=== PATIENT | female | born 1975 | race Caucasian/White ===

== ENCOUNTER 2016-12-13 18:09 | Emergency (ER) | payer MEDICAID ==
[2016-12-13] MEDS ORDERED: NORMAL SALINE 1000 ML 1,000 ML IV ONE (19:02)
[2016-12-13] MEDS ORDERED: ONDANSETRON HCL INJ/PF 4 MG/2 ML SDV IM ONE (19:03)
[2016-12-13] MEDS ORDERED: MORPHINE SULFATE 10 MG/ML INJ IM ONE (19:03)
--- NOTE | 2016-12-13 19:06 | ER Document Report ---
ED Medical Screen (RME) - General Chief Complaint: Abdominal Pain Stated Complaint: ABDOMINAL PAIN Notes: This 41-year-old female patient comes in from complaining of severe abdominal pain, cramps, with nausea and vomiting that started about one hour prior to arrival. She has had abdominal pains for at least 2 years. She had a barium swallow done yesterday at [facility]. She was told in the past she had large gas pockets in her bowels. She is diffusely tender throughout her abdomen at this time. She describes the worst pain being left abdomen and left flank region. I have greeted and performed a rapid initial assessment of this patient. A comprehensive ED assessment and evaluation of the patient, analysis of test results and completion of the medical decision making process will be conducted by additional ED providers. TRAVEL OUTSIDE OF THE [place] IN LAST 30 DAYS: No - Related Data Allergies/Adverse Reactions: hydromorphone [From Dilaudid] Allergy (Severe, Verified 12/13/16 18:30) Anaphylaxis acetaminophen [From Pamprin Max] Allergy (Verified 12/13/16 18:30) aspirin [From Pamprin Max] Allergy (Verified 12/13/16 18:30) caffeine [From Pamprin Max] Allergy (Verified 12/13/16 18:30) gabapentin Allergy (Verified 12/13/16 18:30) meperidine [From Demerol] Allergy (Verified 12/13/16 18:30) pregabalin [From Lyrica] Allergy (Verified 12/13/16 18:30) Past Medical History Renal/ Medical History: Denies: Hx Peritoneal Dialysis GI Medical History: Reports: Hx Gastritis, Hx Colonoscopy, Hx Endoscopy Past Surgical History: Reports: Hx Cholecystectomy, Hx Gastric Bypass Surgery, Hx Orthopedic Surgery - R elbow - Immunizations Hx Diphtheria, Pertussis, Tetanus Vaccination: Yes Physical Exam - Vital signs Vitals: Temp Pulse Resp BP Pulse Ox 98.6 F 114 H 18 119/78 100 12/13/16 18:30 12/13/16 18:30 12/13/16 18:30 12/13/16 18:30 12/13/16 18:30 Course - Vital Signs Vital signs: Temp Pulse Resp BP Pulse Ox 98.6 F 114 H 18 119/78 100 12/13/16 18:30 12/13/16 18:30 12/13/16 18:30 12/13/16 18:30 12/13/16 18:30
[2016-12-13 19:37] LABS: ABSOLUTE BASOPHILS # (AUTO) 0.1 10^3/uL (0.0-0.2); ABSOLUTE EOSINOPHILS # (AUTO) 0.1 10^3/uL (0.0-0.6); ABSOLUTE LYMPHOCYTES (AUTO) 2.6 10^3/uL (0.5-4.7); ABSOLUTE MONOCYTES (AUTO) 0.5 10^3/uL (0.1-1.4); ABSOLUTE NEUT (AUTO) 7.5 10^3/uL (1.7-8.2); BASOPHILS % (AUTO) 0.5 % (0-2); EOSINOPHILS % (AUTO) 0.9 % (0-6); HEMATOCRIT 30.8 % (36.0-47.0); HGB HCT DIFFERENCE -0.8; LYMPHOCYTES % (AUTO) 24.4 % (13-45); MEAN CORPUSCULAR HGB CONC 32.6 g/dL (32.0-36.0); MEAN CORPUSCULAR VOLUME 86 fl (80-97); MONOCYTES % (AUTO) 4.8 % (3-13); RED BLOOD COUNT 3.58 10^6/uL (3.72-5.28); SEGMENTED NEUTROPHILS % (AUTO) 69.4 % (42-78); WHITE BLOOD COUNT 10.8 10^3/uL (4.0-10.5)
[2016-12-13 19:43] LABS: APPEARANCE,URINE TURBID; BILIRUBIN,URINE NEGATIVE (NEGATIVE); GLUCOSE, URINE 50 mg/dL (NEGATIVE); KETONES,URINE TRACE mg/dL (NEGATIVE); LEUKOCYTE ESTERASE,URINE LARGE (NEGATIVE); NITRITE,URINE POSITIVE (NEGATIVE); PROTEIN,URINE 30 mg/dL (NEGATIVE); URINE SPECIFIC GRAVITY 1.029; UROBILINOGEN,URINE NEGATIVE mg/dL (<2.0)
[2016-12-13] MEDS ORDERED: DICYCLOMINE HCL INJ 20 MG/2 ML AMPULE IM ONE (19:45)
--- NOTE | 2016-12-13 19:51 | ER Document Report ---
ED GI/ - General Mode of Arrival: Ambulatory Information source: Patient TRAVEL OUTSIDE OF THE [place] IN LAST 30 DAYS: No - HPI Patient complains to provider of: Abdominal pain Onset: This morning Quality of pain: Sharp <NANCY WAGONER - Last Filed: 12/13/16 20:01> <JAMIE QUIROS - Last Filed: 12/13/16 22:43> - General Chief Complaint: Abdominal Pain Stated Complaint: ABDOMINAL PAIN Notes: Patient is a 41-year-old female that presents to the emergency department today with complaints of abdominal pain with associated nausea and vomiting. Patient had a barium swallow test done yesterday. Patient states she did not develop pain immediately after the swallow. Patient states that she had a normal bowel movement today at 0730. Patient states her pain, nausea, and vomiting began around 1200 today. Patient states she always has abdominal pain that is described as a "pressure" however this pain is "different" and she describes it as more of a "poking" pain. Patient had a gastric bypass in 2007 in [place] with no complications. Patient denies fevers or diarrhea. (NANCY WAGONER) - Related Data Allergies/Adverse Reactions: hydromorphone [From Dilaudid] Allergy (Severe, Verified 12/13/16 18:30) Anaphylaxis acetaminophen [From Pamprin Max] Allergy (Verified 12/13/16 18:30) aspirin [From Pamprin Max] Allergy (Verified 12/13/16 18:30) caffeine [From Pamprin Max] Allergy (Verified 12/13/16 18:30) gabapentin Allergy (Verified 12/13/16 18:30) meperidine [From Demerol] Allergy (Verified 12/13/16 18:30) pregabalin [From Lyrica] Allergy (Verified 12/13/16 18:30) Past Medical History - General Information source: Patient, [facility] Records - Social History Smoking Status: Never Smoker Cigarette use (# per day): No Frequency of alcohol use: None Drug Abuse: None Lives with: Family Family History: Reviewed & Not Pertinent Patient has suicidal ideation: No Patient has homicidal ideation: No GI Medical History: Reports: Hx Gastritis, Hx Colonoscopy, Hx Endoscopy Past Surgical History: Reports: Hx Cholecystectomy, Hx Gastric Bypass Surgery, Hx Orthopedic Surgery - R elbow - Immunizations Hx Diphtheria, Pertussis, Tetanus Vaccination: Yes <CIARAN,NANCY - Last Filed: 12/13/16 20:01> Review of Systems - Review of Systems Constitutional: denies: Fever EENT: No symptoms reported Cardiovascular: No symptoms reported Respiratory: No symptoms reported Gastrointestinal: See HPI, Abdominal pain, Nausea, Vomiting. denies: Diarrhea Genitourinary: No symptoms reported Female Genitourinary: No symptoms reported Musculoskeletal: No symptoms reported Skin: No symptoms reported Hematologic/Lymphatic: No symptoms reported Neurological/Psychological: No symptoms reported -: Yes All other systems reviewed and negative <NANCY WAGONER - Last Filed: 12/13/16 20:01> Physical Exam - Vital signs Interpretation: Tachycardic - General General appearance: Alert, Other - appears uncomfortable In distress: None - Respiratory Respiratory status: No respiratory distress Breath sounds: Normal - Cardiovascular Rhythm: Regular, Tachycardia - Abdominal Inspection: Normal Tenderness: Tender - mild diffuse - Back Back: Tender, CVA tenderness - L - Extremities General upper extremity: Normal inspection, Normal ROM, Normal strength General lower extremity: Normal inspection, Normal ROM, Normal strength, Normal weight bearing - Psychological Associated symptoms: Normal affect, Normal mood - Skin Skin Temperature: Warm Skin Moisture: Dry Skin Color: Normal <JAMIE QUIROS - Last Filed: 12/13/16 22:43> - Vital signs Vitals: Temp Pulse Resp BP Pulse Ox 98.6 F 114 H 18 119/78 100 12/13/16 18:30 12/13/16 18:30 12/13/16 18:30 12/13/16 18:30 12/13/16 18:30 Course - Laboratory Result Diagrams: 12/13/16 19:10 12/13/16 19:10 <NANCY WAGONER - Last Filed: 12/13/16 20:01> - Laboratory Result Diagrams: 12/13/16 19:10 12/13/16 19:10 - Diagnostic Test Radiology reviewed: Image reviewed, Reports reviewed <JAMIE QUIROS - Last Filed: 12/13/16 22:43> - Re-evaluation Re-evalutation: 12/13/16 21:33 Patient is feeling better at this time. Able to take by mouth 12/13/16 22:40 No acute findings on CT except for ovarian cyst. Patient has UTI and some flank pain. Has been given Rocephin in the emergency department. Culture sent. Patient will be discharged home with Keflex and pain medication. Agrees with this plan. (JAMIE QUIROS) - Vital Signs Vital signs: Temp Pulse Resp BP Pulse Ox 98.6 F 114 H 18 119/78 100 12/13/16 18:30 12/13/16 18:30 12/13/16 18:30 12/13/16 18:30 12/13/16 18:30 - Laboratory Laboratory results interpreted by me: 12/13/16 12/13/16 12/13/16 19:10 19:10 19:10 WBC 10.8 H RBC 3.58 L Hgb 10.0 L Hct 30.8 L RDW 17.0 H AST 48 H ALT 68 H Alkaline Phosphatase 148 H Urine Protein 30 H Urine Glucose (UA) 50 H Urine Ketones TRACE H Urine Blood SMALL H Urine Nitrite POSITIVE H Ur Leukocyte Esterase LARGE H Discharge <NANCY WAGONER - Last Filed: 12/13/16 20:01> <JAMIE QUIROS - Last Filed: 12/13/16 22:43> - Discharge Clinical Impression: Pyelonephritis Ovarian cyst Qualifiers: Laterality: left Qualified Code(s): N83.202 - Unspecified ovarian cyst, left side UTI (urinary tract infection) Qualifiers: Urinary tract infection type: site unspecified Hematuria presence: without hematuria Qualified Code(s): N39.0 - Urinary tract infection, site not specified Condition: Stable Disposition: HOME, SELF-CARE Instructions: Urinary Tract Infection ([facility]), Cephalexin ([facility]), Pyelonephritis ( [facility]) Prescriptions: Cephalexin Monohydrate [Keflex 500 mg Capsule] 500 mg PO QID #40 capsule Oxycodone HCl/Acetaminophen [Percocet 5-325 mg Tablet] 1 - 2 tab PO Q4H PRN #15 tablet PRN Reason: Scribe Attestation: 12/13/16 22:42 I personally performed the services described in the documentation, reviewed and edited the documentation which was dictated to the scribe in my presence, and it accurately records my words and actions. (JAMIE QUIROS) Scribe Documentation - Scribe Written by Scribe:: Rayray Schmitz 12/13/2016 2006 acting as scribe for :: Maria Elena <NANCY WAGONER - Last Filed: 12/13/16 20:01>
[2016-12-13 19:59] LABS: ALANINE AMINOTRANSFERASE 68 U/L (9-52); ALBUMIN 4.3 g/dL (3.5-5.0); ALKALINE PHOSPHATASE 148 U/L (38-126); ANION GAP 14 (5-19); ASPARTATE AMINO TRANSFERASE 48 U/L (14-36); BILIRUBIN,DIRECT 0.3 mg/dL (0.0-0.4); BILIRUBIN,TOTAL 0.5 mg/dL (0.2-1.3); BLOOD UREA NITROGEN 17 mg/dL (7-20); CARBON DIOXIDE 24 mmol/L (22-30); CHLORIDE 105 mmol/L (98-107); CREATININE RESULT 0.74 mg/dL (0.52-1.25); GLUCOSE 87 mg/dL (75-110); LIPASE 247.1 U/L (23-300); POTASSIUM 4.4 mmol/L (3.6-5.0); SODIUM 143.3 mmol/L (137-145); TOTAL PROTEIN 7.3 g/dL (6.3-8.2)
[2016-12-13] MEDS ORDERED: CEFTRIAXONE 1 GM/D5W RTU 50 ML IV ONE (20:45)
[2016-12-13] MEDS ORDERED: MORPHINE SULFATE 10 MG/ML INJ IV ONE (22:36)
[2016-12-13] MEDS ORDERED: HYDROCODONE/ACETAMINOPHEN 5-325 MG 6 TAB/DSPK PO PRN (22:41)
[2016-12-13 23:33] VITALS: BP 129/86
== END 2016-12-13 23:15 | disposition home or self-care (01) ==
LOC: ER 18:09
DX: N12 Tubulo-interstitial nephritis, not specified as acute or chronic (principal); N83.202 Unspecified ovarian cyst, left side; N39.0 Urinary tract infection, site not specified
CPT/HCPCS: 99284; 96372; 96375; 96365; 36415; 87086; 83690; 85025; 87088; 80053; 81001; 87186; 74022; 76705; 74177; J0500; J2270; J2405; J7030; J0696

== ENCOUNTER 2017-02-13 17:06 | Emergency (ER) | payer MEDICAID ==
[2017-02-13] MEDS ORDERED: ONDANSETRON 4 MG TAB.RAPDIS SL ONE (18:00)
[2017-02-13] MEDS ORDERED: NORMAL SALINE 1000 ML 1,000 ML IV PRN (18:00)
--- NOTE | 2017-02-13 18:02 | ER Document Report ---
ED Medical Screen (RME) - General Chief Complaint: Upper Abdominal Pain Stated Complaint: UPPER ABDOMINAL PAIN Time Seen by Provider: 02/13/17 17:59 Mode of Arrival: Ambulatory Information source: Patient TRAVEL OUTSIDE OF THE [place] IN LAST 30 DAYS: No - HPI Patient complains to provider of: Upper abdominal pain with nausea and vomiting Onset: Other - 3 days Onset/Duration: Persistent Severity: Moderate Pain Level: 3 Associated Symptoms: Nausea, Vomiting Exacerbated by: Denies Relieved by: Denies Similar symptoms previously: Yes Recently seen / treated by doctor: Yes Notes: 02/13/17 18:01 Patient is a 42-year-old female who presents to the emergency room complaining of 3 day history of upper abdominal pain with nausea and vomiting, she denies any diarrhea, no fevers, no urinary symptoms, recently saw her primary care provider for similar symptoms and was diagnosed with "gas pocket", she has a history of gastric bypass surgery as well as cholecystectomy in the past, as well as fibromyalgia - Related Data Allergies/Adverse Reactions: hydromorphone [From Dilaudid] Allergy (Severe, Verified 12/13/16 18:30) Anaphylaxis acetaminophen [From Pamprin Max] Allergy (Verified 12/13/16 18:30) aspirin [From Pamprin Max] Allergy (Verified 12/13/16 18:30) caffeine [From Pamprin Max] Allergy (Verified 12/13/16 18:30) gabapentin Allergy (Verified 12/13/16 18:30) meperidine [From Demerol] Allergy (Verified 12/13/16 18:30) pregabalin [From Lyrica] Allergy (Verified 12/13/16 18:30) Past Medical History Renal/ Medical History: Denies: Hx Peritoneal Dialysis GI Medical History: Reports: Hx Gastritis, Hx Colonoscopy, Hx Endoscopy Past Surgical History: Reports: Hx Cholecystectomy, Hx Gastric Bypass Surgery, Hx Orthopedic Surgery - R elbow - Immunizations Hx Diphtheria, Pertussis, Tetanus Vaccination: Yes Physical Exam - Vital signs Vitals: Temp Pulse Resp BP Pulse Ox 98.4 F 99 22 H 147/89 H 99 02/13/17 17:15 02/13/17 17:15 02/13/17 17:15 02/13/17 17:15 02/13/17 17:15 Course - Vital Signs Vital signs: Temp Pulse Resp BP Pulse Ox 98.4 F 99 22 H 147/89 H 99 02/13/17 17:15 02/13/17 17:15 02/13/17 17:15 02/13/17 17:15 02/13/17 17:15
[2017-02-13 18:42] LABS: ABSOLUTE BASOPHILS # (AUTO) 0.1 10^3/uL (0.0-0.2); ABSOLUTE EOSINOPHILS # (AUTO) 0.4 10^3/uL (0.0-0.6); ABSOLUTE LYMPHOCYTES (AUTO) 2.6 10^3/uL (0.5-4.7); ABSOLUTE MONOCYTES (AUTO) 0.4 10^3/uL (0.1-1.4); BASOPHILS % (AUTO) 1.6 % (0-2); EOSINOPHILS % (AUTO) 6.7 % (0-6); HEMATOCRIT 33.2 % (36.0-47.0); HEMOGLOBIN 10.6 g/dL (12.0-15.5); HGB HCT DIFFERENCE -1.4; LYMPHOCYTES % (AUTO) 39.5 % (13-45); MEAN CORPUSCULAR VOLUME 81 fl (80-97); MONOCYTES % (AUTO) 6.5 % (3-13); RED BLOOD COUNT 4.08 10^6/uL (3.72-5.28); RED CELL DISTRIBUTION WIDTH 16.8 % (11.5-14.0); SEGMENTED NEUTROPHILS % (AUTO) 45.7 % (42-78); WHITE BLOOD COUNT 6.7 10^3/uL (4.0-10.5)
[2017-02-13 18:46] LABS: APPEARANCE,URINE SLIGHTLY-CLOUDY; BILIRUBIN,URINE NEGATIVE (NEGATIVE); GLUCOSE, URINE NEGATIVE (NEGATIVE); KETONES,URINE NEGATIVE (NEGATIVE); LEUKOCYTE ESTERASE,URINE NEGATIVE (NEGATIVE); NITRITE,URINE POSITIVE (NEGATIVE); PROTEIN,URINE NEGATIVE (NEGATIVE); URINE SPECIFIC GRAVITY 1.005; UROBILINOGEN,URINE NEGATIVE mg/dL (<2.0)
[2017-02-13 19:03] LABS: ALANINE AMINOTRANSFERASE 95 U/L (9-52); ALBUMIN 4.7 g/dL (3.5-5.0); ALKALINE PHOSPHATASE 171 U/L (38-126); ANION GAP 13 (5-19); ASPARTATE AMINO TRANSFERASE 37 U/L (14-36); BILIRUBIN,DIRECT 0.4 mg/dL (0.0-0.4); BILIRUBIN,TOTAL 0.5 mg/dL (0.2-1.3); BLOOD UREA NITROGEN 14 mg/dL (7-20); CALCIUM 10.4 mg/dL (8.4-10.2); CARBON DIOXIDE 28 mmol/L (22-30); CHLORIDE 100 mmol/L (98-107); CREATININE RESULT 0.78 mg/dL (0.52-1.25); GLUCOSE 82 mg/dL (75-110); LIPASE 170.2 U/L (23-300); POTASSIUM 4.8 mmol/L (3.6-5.0); SODIUM 141.4 mmol/L (137-145); TOTAL PROTEIN 8.6 g/dL (6.3-8.2)
[2017-02-13] MEDS ORDERED: OXYCODONE-ACETAMINOPHEN 5-325 MG TABLET PO ONE (19:49)
--- NOTE | 2017-02-13 19:49 | ER Document Report ---
ED GI/ - General Mode of Arrival: Ambulatory Information source: Patient TRAVEL OUTSIDE OF THE [place] IN LAST 30 DAYS: No - HPI Patient complains to provider of: Abdominal pain Onset: Other - 2 years ago Context: Other - see notes above Associated symptoms: Other - see notes above <CAMILA MORSE - Last Filed: 02/13/17 21:07> <JAI YANEZ - Last Filed: 02/14/17 03:51> - General Chief Complaint: Upper Abdominal Pain Stated Complaint: UPPER ABDOMINAL PAIN Time Seen by Provider: 02/13/17 19:35 Notes: Female with history of gastric bypass (2007) and a cholecystectomy over these 2003) presents to the ED complaining of intermittent abdominal pain has been present for the past 2 years. Patient reports that she has been diagnosed with "gas pockets" by her primary care physician and has been told to take Gas-X. Patient also states that she has been seen by Dr. Wisdom was performed a scope on her with no significant findings other than a hernia. Patient reports that Dr. Wisdom recommends that the patient take Nexium in addition to the Gas-X. Patient states that she is here today because her pain is worse than usual. She reports to changing her diet and removing "gas" inducing foods. She claims that she eats mainly "meat and bread". Patient also states that she has tried "10-11" different medications for the pain, but they all have not helped. Patient reports that the pain becomes unbearable approximately once a month to the point that she is to come to the ED. Patient has an appointment with Dr. Wisdom in March. PCP: Dr. Izaguirre (CAMILA MORSE) - Related Data Allergies/Adverse Reactions: hydromorphone [From Dilaudid] Allergy (Severe, Verified 12/13/16 18:30) Anaphylaxis acetaminophen [From Pamprin Max] Allergy (Verified 12/13/16 18:30) aspirin [From Pamprin Max] Allergy (Verified 12/13/16 18:30) caffeine [From Pamprin Max] Allergy (Verified 12/13/16 18:30) gabapentin Allergy (Verified 12/13/16 18:30) meperidine [From Demerol] Allergy (Verified 12/13/16 18:30) pregabalin [From Lyrica] Allergy (Verified 12/13/16 18:30) Past Medical History - General Information source: Patient - Social History Smoking Status: Never Smoker Chew tobacco use (# tins/day): No Frequency of alcohol use: None Drug Abuse: None Family History: Reviewed & Not Pertinent Renal/ Medical History: Denies: Hx Peritoneal Dialysis GI Medical History: Reports: Hx Gastritis, Hx Colonoscopy, Hx Endoscopy Past Surgical History: Reports: Hx Abdominal Surgery - gastric bypass, Hx Cholecystectomy, Hx Gastric Bypass Surgery, Hx Orthopedic Surgery - R elbow - Immunizations Hx Diphtheria, Pertussis, Tetanus Vaccination: Yes <CAMILA MORSE - Last Filed: 02/13/17 21:07> Review of Systems - Review of Systems Constitutional: No symptoms reported EENT: No symptoms reported Cardiovascular: No symptoms reported Respiratory: No symptoms reported Gastrointestinal: See HPI, Abdominal pain Genitourinary: No symptoms reported Female Genitourinary: No symptoms reported Musculoskeletal: No symptoms reported Skin: No symptoms reported Hematologic/Lymphatic: No symptoms reported Neurological/Psychological: No symptoms reported -: Yes All other systems reviewed and negative <CAMILA MORSE - Last Filed: 02/13/17 21:07> Physical Exam - General General appearance: Alert In distress: None - HEENT Head: Normocephalic, Atraumatic Eyes: Normal Extraocular movements intact: Yes Pupils: PERRL - Respiratory Respiratory status: No respiratory distress Breath sounds: Normal - Cardiovascular Rhythm: Regular Heart sounds: Normal auscultation - Abdominal Inspection: Normal Distension: No distension Bowel sounds: Normal Tenderness: Nontender, Other - no rigidity. No: Guarding, Rebound - Back Back: Normal - Extremities General upper extremity: Normal inspection, Normal ROM General lower extremity: Normal inspection, Normal ROM - Neurological Neuro grossly intact: Yes Cognition: Normal Orientation: AAOx4 Stur[place]ant Coma Scale Eye Opening: Spontaneous Lisa Coma Scale Verbal: Oriented Lisa Coma Scale Motor: Obeys Commands Lisa Coma Scale Total: 15 Speech: Normal - Psychological Associated symptoms: Normal affect, Normal mood - Skin Skin Temperature: Warm Skin Moisture: Dry Skin Color: Normal <CAMILA MORSE - Last Filed: 02/13/17 21:07> Course - Laboratory Result Diagrams: 02/13/17 18:25 02/13/17 18:25 <CAMILA MORSE - Last Filed: 02/13/17 21:07> - Laboratory Result Diagrams: 02/13/17 18:25 02/13/17 18:25 <JAI YANEZ - Last Filed: 02/14/17 03:51> - Re-evaluation Re-evalutation: 02/13/17 19:50 Patient presents emergency room with abdominal pain which she calls gas pockets. Patient has an extensive history of gastric bypass surgery adhesions and hiatal hernia as well as chronic abdominal pain. She has both a family doctor and the GI specialist that she saw 2 months ago in [place] and was scoped to have her on Nexium. She said they tried 12-14 different medications to try to control her discomfort but were unsuccessful. She is here now stating is not any different from normal but she feels a fullness and gas. No associated nausea vomiting dull pain diarrhea constipation urinary symptoms her primary care physician or GI specialist do not currently have her on anything for chronic pain although she states that chronically because of pain. She has not seen her primary care physician for this episode which is been increasing over the past couple weeks. They are however referring her back to the GI specialist. She says that nothing helps her but IV morphine. On examination she is well-appearing nontoxic in no acute distress and is afebrile her belly is soft good bowel sounds absolutely no tenderness guarding rebound rigidity and she has completely normal labs. At this point I offered her oral Percocet she said that does not help her she wanted IV medication I explained to her that given the fact that this is chronic in nature not new or different today with negative labs and workup and I can offer to offer her dose of Percocet here and any additional medication would need to be prescribed by the family doctor or the specialist which she sees for this on a chronic basis and I do not think IV medication is indicated in this situation. She verbalizes understanding of this also seems not to understand that. Told to follow primary care physician in 1-2 days has an appointment with the specialist in March and discussed reasons for ED return (JAI YANEZ) - Vital Signs Vital signs: Temp Pulse Resp BP Pulse Ox 98.5 F 77 18 120/84 100 02/13/17 20:09 02/13/17 20:09 02/13/17 20:09 02/13/17 20:09 02/13/17 20:09 - Laboratory Laboratory results interpreted by me: 02/13/17 02/13/17 02/13/17 18:25 18:25 18:25 Hgb 10.6 L Hct 33.2 L MCH 26.0 L RDW 16.8 H Eosinophils % 6.7 H Calcium 10.4 H AST 37 H ALT 95 H Alkaline Phosphatase 171 H Total Protein 8.6 H Urine Nitrite POSITIVE H Discharge <CAMILA MORSE - Last Filed: 02/13/17 21:07> <JAI YANEZ - Last Filed: 02/14/17 03:51> - Discharge Clinical Impression: abdominal pain Condition: Stable Disposition: HOME, SELF-CARE Instructions: Abdominal Pain ([facility]) Additional Instructions: Abdominal Pain There are many causes of abdominal pain. Pain can mean a serious problem requiring surgery (such as appendicitis). It can also be an innocent problem that goes away on its own (such as a viral infection). Often, time must pass to determine the cause of pain. The physician does not feel that hospitalization is necessary, at present. Things may change within the next 24 hours. Call the doctor or come back for re- examination if any problems occur, such as: (1) Pain that becomes more severe, steady, or becomes concentrated in one specific area. Also, pain that is more severe with movement or coughing. (2) Vomiting that persists or becomes more frequent. (3) Blood in the vomitus, urine, or bowel movements. Blood in the stool may have a tarry or black appearance. (4) Shaking chills or fever greater than 100 degrees F. (5) The abdomen becomes more distended or swollen. (6) Bowel movements cease. (7) Failure to improve as expected. Follow-up with your primary care physician in 1-2 days return for increasing worsening or new symptoms Scribe Attestation: 02/13/17 19:52 I personally performed the services described in the documentation reviewed the documentation recorded by my scribe in my presence and it accurately and completely records my words and actions (JAI YANEZ) Scribe Documentation - Scribe Written by Rayray:: Rayray Nelson, 02/13/2017 [id number] acting as scribe for :: Yasmany <CAMILA MORSE - Last Filed: 02/13/17 21:07>
[2017-02-13 20:19] VITALS: BP 120/84
== END 2017-02-13 20:11 | disposition home or self-care (01) ==
LOC: ER 17:06
DX: R10.10 Upper abdominal pain, unspecified (principal); G89.29 Other chronic pain; R14.3 Flatulence; Z98.84 Bariatric surgery status; Z90.49 Acquired absence of other specified parts of digestive tract; Z88.5 Allergy status to narcotic agent; Z88.8 Allergy status to other drugs, medicaments and biological substances; Z88.6 Allergy status to analgesic agent; Z87.19 Personal history of other diseases of the digestive system
CPT/HCPCS: 99284; 96360; 36415; 83690; 85025; 80053; 81001; S0119; J7030